=== PATIENT | male | born 1975 | race Two or more races ===

== ENCOUNTER 2022-10-18 12:17 | Inpatient (IN) | payer OTHER ==
[2022-10-25] MEDS ORDERED: INTESTINEX680 M1 PO (15:50)
[2022-10-25] MEDS ORDERED: ULTRACET PO (15:50)
[2022-10-25] MEDS ORDERED: IMODIUM A-D2 M2 PO (15:51)
[2022-10-25] MEDS ORDERED: TAMS0.4C PO (15:51)
[2022-10-26] MEDS ORDERED: ULTRAM50 MG PO (08:06)
== END 2022-10-26 19:47 | disposition home or self-care (01) | DRG 330 ==
LOC: O/R 10-20 08:04 → SURH 10-20 08:04 → O/R 10-20 22:57 → SURH 10-21 11:27
PROVIDERS: ADMIT Surgery; ATTEND Surgery
PROC: 0DTP4ZZ Resection of Rectum, Percutaneous Endoscopic Approach (ICD-10-PCS; 2022-10-20)
PROC: 0DBN4ZZ Excision of Sigmoid Colon, Percutaneous Endoscopic Approach (ICD-10-PCS; 2022-10-20)
PROC: 0DUP47Z Supplement Rectum with Autologous Tissue Substitute, Percutaneous Endoscopic Approach (ICD-10-PCS; 2022-10-20)
PROC: 0DJD8ZZ Inspection of Lower Intestinal Tract, Via Natural or Artificial Opening Endoscopic (ICD-10-PCS; 2022-10-20)
PROC: 4A1BXSH Monitoring of Gastrointestinal Vascular Perfusion using Indocyanine Green Dye, External Approach (ICD-10-PCS; 2022-10-20)
PROC: 0D1B4Z4 Bypass Ileum to Cutaneous, Percutaneous Endoscopic Approach (ICD-10-PCS; principal; 2022-10-20 10:30)
DX: C20 Malignant neoplasm of rectum (principal); K92.2 Gastrointestinal hemorrhage, unspecified; R59.0 Localized enlarged lymph nodes; D75.1 Secondary polycythemia; I10 Essential (primary) hypertension

== ENCOUNTER 2022-12-01 06:29 | Day surgery (SDC) | payer OTHER ==
[~2022-12-01 06:29] MED LIST: IMODIUM A-D2 M2 PO; INTESTINEX680 M1 PO; TAMS0.4C PO; ULTRACET PO; ULTRAM50 MG PO
[2022-12-01] MEDS ORDERED: ULTRACET PO (08:51)
== END 2022-12-01 12:20 | disposition home or self-care (01) ==
LOC: CIR.AMB 06:29
PROVIDERS: ATTEND Surgery
DX: C20 Malignant neoplasm of rectum (principal); R59.0 Localized enlarged lymph nodes; K92.2 Gastrointestinal hemorrhage, unspecified; I10 Essential (primary) hypertension; Z93.2 Ileostomy status; Z20.822 Contact with and (suspected) exposure to COVID-19

== ENCOUNTER 2023-08-15 08:11 | Inpatient (IN) | payer OTHER ==
[~2023-08-15] VITALS: Ht 185.4 cm; Wt 108.9 kg
[2023-08-16 09:27] LABS: PH,URINE 5.5 (5.0-8.0); URINE APPEARANCE Clear; URINE BILIRRUBIN Negative (NEGATIVE); URINE BLOOD Negative; URINE COLOR Yellow; URINE GLUCOSE Negative (NEGATIVE); URINE LEUKOCYTE Negative; URINE NITRATE Negative; URINE PROTEIN Negative (NEGATIVE); URINE UROBILINOGEN 0.2 E.U./dl
[2023-08-16 09:29] LABS: HEMATOCRIT 46.1 % (39.0-48.0); MEAN CELL VOLUME 92.7 fL (80.0-100.00); MEAN CORPUSCULAR HEMOGLOBIN 32.2 pg (27.00-32.0); MEAN CORPUSCULAR HGB CONC 34.7 g/dl (32.0-36.0); PLATELET COUNT 240 K/uL (150-450); RED BLOOD COUNT 4.97 M/uL (4.00-6.00); RED CELL DISTRIBUTION WIDTH 13.8 % (11.5-14.5)
[2023-08-16 09:34] LABS: URINE BACTERIA 8.4 uL (0.0-1933); URINE EPITHELIAL CELLS 1.7 uL (0.0-38.8); URINE WBC 1.8 uL (0.0-23.2)
[2023-08-16 09:38] LABS: URINE RBC 0.7 uL (0.0-20.8)
[2023-08-16 09:59] LABS: ALBUMIN 4.1 gm/dL (3.4-5.0); BILIRUBIN TOTAL 0.77 mg/dL (0.3-1.2); CALCIUM 9.2 mg/dL (8.5-10.1); CREATININE SERUM 1.04 mg/dL (0.70-1.30); GFR 76.88; GLOBULINA 3.6 G/DL (2.4-3.5); POTASSIUM 4.39 mEq/L (3.5-5.1); TOTAL PROTEIN 7.7 gm/dL (6.4-8.2)
[2023-08-16 10:01] LABS: INR 1.02; PARTIAL THROMBOPLASTIN TIME 28.3 SECONDS (22.0-34.0); PROTHROMBIN TIME 10.7 SECONDS (9.0-11.5)
[2023-08-22 13:41] LABS: HEMATOCRIT 47.8 % (39.0-48.0); MEAN CELL VOLUME 93.6 fL (80.0-100.00); MEAN CORPUSCULAR HEMOGLOBIN 31.3 pg (27.00-32.0); MEAN CORPUSCULAR HGB CONC 33.5 g/dl (32.0-36.0); PLATELET COUNT 231 K/uL (150-450); RED CELL DISTRIBUTION WIDTH 13.3 % (11.5-14.5)
[2023-08-22 14:48] LABS: ABG PH 7.395 (7.35-7.45)
[2023-08-22 14:49] LABS: ABG PO2 160.7 mmHg (80-100); ABG pCO2 42.6 mmHg (35-45); BASE EXCESS 0.5 mmol/l; BICARBONATE 25.5 mmol/l (23-25); SaO2 99.4 %; Tco2 26.8 mmol/l; allen test SATISFACTORY; o2 40 %; puncture site RADIAL RIGHT
[2023-08-23 07:18] LABS: HEMATOCRIT 44.3 % (39.0-48.0); HEMOGLOBIN 15.4 g/dL (13-16.00); MEAN CELL VOLUME 91.5 fL (80.0-100.00); MEAN CORPUSCULAR HEMOGLOBIN 31.8 pg (27.00-32.0); MEAN CORPUSCULAR HGB CONC 34.7 g/dl (32.0-36.0); PLATELET COUNT 237 K/uL (150-450); RED BLOOD COUNT 4.84 M/uL (4.00-6.00); RED CELL DISTRIBUTION WIDTH 14.1 % (11.5-14.5)
[2023-08-23 08:12] LABS: ALBUMIN 3.6 gm/dL (3.4-5.0); CALCIUM 8.6 mg/dL (8.5-10.1); CREATININE SERUM 0.99 mg/dL (0.70-1.30); GFR 81.38; MAGNESIUM 2.3 mg/dL (1.8-2.4); PHOSPHOROUS 2.8 mg/dL (2.5-4.9); POTASSIUM 3.92 mEq/L (3.5-5.1)
[2023-08-24 08:00] LABS: HEMATOCRIT 47.5 % (39.0-48.0); HEMOGLOBIN 16.1 g/dL (13-16.00); MEAN CELL VOLUME 92.2 fL (80.0-100.00); MEAN CORPUSCULAR HEMOGLOBIN 31.3 pg (27.00-32.0); MEAN CORPUSCULAR HGB CONC 33.9 g/dl (32.0-36.0); PLATELET COUNT 262 K/uL (150-450); RED BLOOD COUNT 5.16 M/uL (4.00-6.00); RED CELL DISTRIBUTION WIDTH 13.5 % (11.5-14.5)
[2023-08-24 09:04] LABS: CREATININE SERUM 1.02 mg/dL (0.70-1.30); GFR 78.63; MAGNESIUM 2.5 mg/dL (1.8-2.4); PHOSPHOROUS 2.9 mg/dL (2.5-4.9); POTASSIUM 4.08 mEq/L (3.5-5.1)
[2023-08-25 07:15] LABS: HEMATOCRIT 45.8 % (39.0-48.0); HEMOGLOBIN 15.2 g/dL (13-16.00); MEAN CORPUSCULAR HEMOGLOBIN 31.1 pg (27.00-32.0); MEAN CORPUSCULAR HGB CONC 33.1 g/dl (32.0-36.0); PLATELET COUNT 237 K/uL (150-450); RED BLOOD COUNT 4.87 M/uL (4.00-6.00); RED CELL DISTRIBUTION WIDTH 13.4 % (11.5-14.5)
[2023-08-25 07:32] LABS: CALCIUM 8.9 mg/dL (8.5-10.1); CREATININE SERUM 1.13 mg/dL (0.70-1.30); GFR 69.86; MAGNESIUM 2.4 mg/dL (1.8-2.4); POTASSIUM 3.86 mEq/L (3.5-5.1)
[2023-08-27] MEDS ORDERED: GAS RELIEF125 MG PO (15:03)
[2023-08-27] MEDS ORDERED: TRAM1TAB98 PO (15:03)
[2023-08-27] MEDS ORDERED: INTESTINEX680 M1 PO (15:03)
[2023-08-27] MEDS ORDERED: HIBICLENS118 ML TOP (15:04)
[2023-08-27] MEDS ORDERED: LEVSIN/SL0.125 MG SL (15:04)
== END 2023-08-27 17:27 | disposition home or self-care (01) | DRG 348 ==
LOC: SURH 08-22 05:30 → O/R 08-22 05:30 → SURG 08-22 08:15 → SURH 08-22 13:05
PROVIDERS: Internal Medicine Geriatric Medicine; ADMIT Surgery; ATTEND Surgery
PROC: 0DBB4ZZ Excision of Ileum, Percutaneous Endoscopic Approach (ICD-10-PCS; principal; 2023-08-22 10:30)
PROC: 3E0F7SF Introduction of Other Gas into Respiratory Tract, Via Natural or Artificial Opening (ICD-10-PCS; 2023-08-23)
PROC: 4A12X4Z Monitoring of Cardiac Electrical Activity, External Approach (ICD-10-PCS; 2023-08-23)
PROC: 3E0336Z Introduction of Nutritional Substance into Peripheral Vein, Percutaneous Approach (ICD-10-PCS; 2023-08-25)
DX: Z43.2 Encounter for attention to ileostomy (principal); C20 Malignant neoplasm of rectum; C78.7 Secondary malignant neoplasm of liver and intrahepatic bile duct; K92.2 Gastrointestinal hemorrhage, unspecified; K91.89 Other postprocedural complications and disorders of digestive system; K56.7 Ileus, unspecified; G47.39 Other sleep apnea; I10 Essential (primary) hypertension

== ENCOUNTER 2024-01-24 05:24 | Inpatient (IN) | payer OTHER ==
[~2024-01-24] VITALS: Ht 185.4 cm; Wt 106.6 kg
[~2024-01-24 05:24] MED LIST changes: +GAS RELIEF125 MG PO; +HIBICLENS118 ML TOP; +LEVSIN/SL0.125 MG SL; +TRAM1TAB98 PO
--- NOTE | 2024-01-24 05:50 | NUR ---
SE RECIBE PTE ALERTA Y ORIENTADO X3 EL CUAL REFIERE VENIR POR REFERIDO DE DRA. MEL BARNES PARA QUE PASARA HOY POR PENELOPE DE EMERGENCIA PARA SER OPERADO POR DR. Pat PINA. PTE AL MOMENTO NO REFIERE NAUSEAS, VOMITOS, DIARREAS O DOLOR. SE MIDEN S/V A PTE Y SE COLOCA EN AREA DE PASILLO.
--- NOTE | 2024-01-24 06:21 | NUR ---
PTE EVALUADO POR EL LEANN CRAVEN QUEIN ORDENA TRAAMIENTO LA CUAL DE EKJECUTA POR MS.GRULLON RN SE MANIENEN BAJO OBSERVACION POR CAMBIOS.
[2024-01-24 06:46] LABS: MEAN CELL VOLUME 90.5 fL (80.0-100.00); MEAN CORPUSCULAR HEMOGLOBIN 30.8 pg (27.00-32.0); PLATELET COUNT 250 K/uL (150-450); RED BLOOD COUNT 4.87 M/uL (4.00-6.00)
[2024-01-24 06:50] LABS: INR 1.01; PARTIAL THROMBOPLASTIN TIME 29.9 SECONDS (22.0-34.0); PROTHROMBIN TIME 10.6 SECONDS (9.0-11.5)
[2024-01-24 06:51] LABS: RED CELL DISTRIBUTION WIDTH 16.8 % (11.5-14.5)
[2024-01-24 06:56] LABS: CALCIUM 8.9 mg/dL (8.5-10.1); CREATININE SERUM 1.11 mg/dL (0.70-1.30); GFR 71.01; POTASSIUM 4.46 mEq/L (3.5-5.1)
--- NOTE | 2024-01-24 08:28 | NUR ---
SE RECIBE PACIENTE ALERTA Y ORIENTADO X 3 ESFERAS EN CAMA EN COMPANIA DE FAMILIAR. PRESENTANDO BUEN PATRON RESPIRATORIO. H/L EN BRAZO MAYTE AREA WILLIAM DE EDEMA Y ERITEMA. PENDIENTE CONSULTA CON Y DR.NICOLAS PINA. SE MANTIENE EN OBSERVACION POR CAMBIOS EN CONDICION MEDICA.
--- NOTE | 2024-01-24 08:28 | NUR ---
SE RECIBE PACIENTE ALERTA Y ORIENTADO X 3 ESFERAS EN CAMA CON BARANDAS ELEVADAS POR SEGURIDAD. PRESENTANDO BUEN PATRON RESPIRATORIO. RECIBIENDO IV'S
[2024-01-24] MEDS ORDERED: RINGERS SOLUTION,LACTATED 1,000 ML IV SCH ×2 (09:30→22:15)
[2024-01-24] MEDS ORDERED: ONDANSETRON HCL 2 MG/ML VIAL IV PRN ×2 (09:30→22:15)
[2024-01-24] MEDS ORDERED: MORPHINE SULFATE 4 MG/ML VIAL IV PRN (09:30)
[2024-01-24] MEDS ORDERED: BUPIVACAINE HCL/PF 0.5% 30ML ML ONE (20:21)
[2024-01-24] MEDS ORDERED: LIDOCAINE HCL 1%/Epi 20ML VIAL IJ ONE ×2 (20:21→21:00)
[2024-01-24] MEDS ORDERED: CEFAZOLIN SODIUM 1,000 MG VIAL ONE (20:46)
[2024-01-24] MEDS ORDERED: CEFAZOLIN SODIUM 1,000 MG VIAL IV ONE (21:00)
[2024-01-24] MEDS ORDERED: BUPIVACAINE HCL 30 ML VIAL IJ ONE (21:00)
[2024-01-24] MEDS ORDERED: MORPHINE SULFATE 4 MG/ML CARTRIDGE IV PRN (22:15)
[2024-01-25] MEDS ORDERED: GABAPENTIN 300 MG CAPSULE PO SCH (01:00)
[2024-01-25] MEDS ORDERED: ACETAMINOPHEN 500 MG GEL..CAP PO SCH (02:00)
[2024-01-25] MEDS ORDERED: CELECOXIB 200 MG CAPSULE PO SCH (05:00)
[2024-01-25] MEDS ORDERED: FAMOTIDINE/PF 20 MG/2 ML VIAL IV PUSH SCH (09:00)
[2024-01-25] MEDS ORDERED: XARELTO15 MG PO (09:05)
[2024-01-25] MEDS ORDERED: TRAM1TAB98 PO (09:06)
[2024-01-25] MEDS ORDERED: ENOXAPARIN SODIUM 40 MG/0.4 ML SYRINGE SUBCUTANEO SCH (17:00)
[2024-01-26] MEDS ORDERED: ENOXAPARIN SODIUM 40 MG/0.4 ML SYRINGE SUBCUTANEO SCH (17:00)
== END 2024-01-25 11:00 | disposition home or self-care (01) | DRG 316 ==
LOC: ER 05:24 → SEC-K 10:06 → O/R 20:40 → SURG 22:53
PROVIDERS: ADMIT Surgery; ATTEND Surgery
PROC: 0JPT0WZ Removal of Totally Implantable Vascular Access Device from Trunk Subcutaneous Tissue and Fascia, Open Approach (ICD-10-PCS; principal; 2024-01-24 19:00)
DX: T82.514A Breakdown (mechanical) of infusion catheter, initial encounter (principal); Y65.8 Other specified misadventures during surgical and medical care; Z45.2 Encounter for adjustment and management of vascular access device; Z20.822 Contact with and (suspected) exposure to COVID-19